=== PATIENT | male | born 1965 | race Caucasian/White ===

== ENCOUNTER 2023-06-06 12:30 | Day surgery (SDC) | payer BC ==
[2023-06-05 13:50] VITALS: BMI 29.1
[2023-06-06] MEDS ORDERED: LIDOCAINE HCL 2% (20ML MULTI-DOSE VIAL) ONE (12:52)
[2023-06-06] MEDS ORDERED: MIDAZOLAM HCL 2 MG/2 ML SINGLE DOSE VIAL ONE (13:31)
[2023-06-06] MEDS ORDERED: PROPOFOL 40 ML ONE (13:31)
[2023-06-06] MEDS ORDERED: SUCCINYLCHOLINE CHLORIDE 200 MG/10 ML SYRINGE ONE (13:31)
[2023-06-06] MEDS ORDERED: BUPIVACAINE HCL/PF 2.5 MG/ML - 30 ML VIAL IJ ONE (13:37)
[2023-06-06] MEDS ORDERED: DEXAMETHASONE SOD PHOSPHATE 4 MG/1 ML VIAL ONE (13:55)
[2023-06-06] MEDS ORDERED: ONDANSETRON 4 MG/2 ML VIAL ONE (13:55)
[2023-06-06] MEDS ORDERED: ceFAZolin SODIUM 1 GM VIAL ONE (13:58)
[2023-06-06] MEDS ORDERED: oxyCODONE HCL 5 MG TABLET PO PRN (16:01)
[2023-06-06] MEDS ORDERED: ONDANSETRON 4 MG/2 ML VIAL IVPUSH PRN (16:01)
[2023-06-06] MEDS ORDERED: ACETAMINOPHEN 500 MG TABLET (FP) PO ONE (16:01)
[2023-06-06] MEDS ORDERED: ACETAMINOPHEN INJECTION 100 ML IVPB ONE (16:14)
[2023-06-06] MEDS ORDERED: LACTATED RINGERS SOLUTION 1,000 ML IV SCH (16:15)
[2023-06-06 16:54] VITALS: BP 112/67; RESP 16; TEMP 98.4
[2023-06-06 17:06] VITALS: PULSE 80
== END 2023-06-06 17:06 | disposition home or self-care (01) ==
LOC: FASU 12:30
PROVIDERS: ATTEND Orthopaedic Surgery Hand Surgery
PROC: 0LQ70ZZ Repair Right Hand Tendon, Open Approach (ICD-10-PCS; principal; 2023-06-06 14:13)
DX: S66.119A Strain of flexor muscle, fascia and tendon of unspecified finger at wrist and hand level, initial encounter (principal); X58.XXXA Exposure to other specified factors, initial encounter; Y93.9 Activity, unspecified; Y92.9 Unspecified place or not applicable
CPT/HCPCS: 94760; C1713